=== PATIENT | female | born 1950 | race Caucasian/White ===

== ENCOUNTER → 2021-10-01 12:00 | Outpatient (CLI) | payer MEDICARE, OTHER, SELFPAY ==
--- NOTE | 2021-10-01 12:03 | DI.RAD.S_ITS ---
PROCEDURE: XR LUMBAR SPINE MIN 4V INDICATIONS: BACK PAIN TECHNIQUE: 5 views of the lumbar spine were acquired, including bilateral oblique views. COMPARISON: [facility], RG, MRI L-SPINE W/O CONTRAST, 04/21/2021, 11:32. FINDINGS: Bones: 5 nonrib-bearing vertebrae are present. There is dextroconvex curvature of the lumbar spine centered at L3. Approximately 3 mm grade 1 retrolisthesis of L3 on L4 is noted. There is also approximately 3 mm grade 1 anterolisthesis of L5 on S1. No vertebral body compression fractures. No suspicious bony lesions. Multilevel disc space narrowing degenerative endplate changes. Facet hypertrophy is seen throughout the lumbar spine. Soft tissues: Overlying bowel gas pattern is normal. No suspicious soft tissue calcifications. Oblique images: No pars defects. IMPRESSION: 1. Multilevel moderate to severe spondylosis and mild degenerative spondylolistheses. 2. Moderate dextroconvex curvature. Dictated by: Kenneth Vann M.D. on 10/01/2021 at 14:29 Approved by: Kenneth Vann M.D. on 10/01/2021 at 14:33
== END ==
PROVIDERS: PCP Family Medicine; Referring Provider Physical Medicine & Rehabilitation; Visit Provider Physical Medicine & Rehabilitation
DX: M47.816 Spondylosis without myelopathy or radiculopathy, lumbar region (principal); M47.817 Spondylosis without myelopathy or radiculopathy, lumbosacral region; M43.16 Spondylolisthesis, lumbar region; M43.17 Spondylolisthesis, lumbosacral region; M54.9 Dorsalgia, unspecified
CPT/HCPCS: 72110; 99214

== ENCOUNTER 2021-10-23 14:23 | Outpatient (CLI) | payer MEDICARE, OTHER, SELFPAY ==
[2021-10-23] VITALS (9 sets, daily range): BP systolic 143–178; BP diastolic 71–91; PULSE 72–77; RESP 17–24; TEMP 37; O2SAT 93–100
--- NOTE | 2021-10-23 14:26 | DI.RAD.S_ITS ---
PROCEDURE: PAIN L/SI FACET INJ/BLK 1STL INDICATIONS: SPONDYLOSIS COMPARISON: None. FINDINGS: Fluoroscopic spot filming was performed to verify placement of spinal needles at the L4-5, L5-S1 level(s), as labeled on the films. Appropriate location(s) of the needle tip(s) was confirmed by injection of iodinated contrast. IMPRESSION: Needle placement as above. Dictated by: Rosanna Meneses M.D. on 10/23/2021 at 21:39 Approved by: Rosanna Meneses M.D. on 10/23/2021 at 21:39
[2021-10-23 14:57] LABS: COVID19 -Nasal RAPID Negative (Negative)
[2021-10-23] MEDS: MIDAZOLAM 2 MG/2 ML VIAL IV ×2 (15:48→15:54)
[2021-10-23] MEDS: BUPIVACAINE 0.5% (PF) VIAL 2 ML INJ (15:50)
[2021-10-23] MEDS: BETAMETHASONE 30 MG/5 ML MDV 12 MG INJ (15:50)
[2021-10-23] MEDS: IOPAMIDOL 15 ML VIAL 3 ML INJ (15:50)
--- NOTE | 2021-10-23 16:05 | P.PCN_ITS ---
Date/Time/Diagnoses Date of procedure: 10/23/21 Time of procedure: 16:05 Pre-procedure diagnosis: 1. FACET ARTHROPATHY, 2. AXIAL LBP, 3. MULTILEVEL DDD Post-procedure diagnosis: same Procedure Notes Procedure: 1. FLUOROSCOPICALLY GUIDED CONTRAST CONTROLLED FACET JOINT INJECTIONS LEFT L4/5, L5/S1 Indications: Rayne is referred by Dr. Mederos for treatment of Axial LBP Physician: Reji Roldan Total Fluoroscopy time (seconds): 7 Total sedation minutes: 11 Complications: none Procedure in detail & Post-procedure care: FINDINGS Multilevel Facet Arthropathy with Clinically significant axial LBP DESCRIPTION OF PROCEDURE Fluoroscopically guided, contrast-controlled left L4/5, L5/S1 facet joint injections. Following review of allergy and review of potential side effects and complications, including, but not necessarily limited to, infection, allergic reaction, local tissue breakdown, stroke, temporary or permanent nerve injury, paralysis, and possible , the patient indicated that the patient understood and agreed to proceed. An informed consent document was signed by the patient, witnessed by a nurse, and placed in the patient's chart. Additionally, other treatment options including medications, modalities, and physical therapy were reviewed with the patient. After review of previous anaesthesic history and IV conscious sedation the patient was deemed safe to proceed with today?s procedure with IV conscious sedation as ASA class II designation. Safety time-out was performed to confirm patient ID, procedure to be performed and site of procedure. IV sedation was accomplished with a combination of 4mg of Versed was administered by the RN after DO order, titrated to patient comfort during the course of the procedure while the patient remained responsive to all verbal commands. In the prone position, following sterile prep and drape of the lumbar region, the posterior aspect of the left L4/5, L5/S1 facet joints were identified fluoroscopically. The skin was anesthetized via a 25-gauge 1.5-inch needle with 1% lidocaine solution into the corresponding facet joints. At this point, a 22- gauge 3.5-inch spinal needle was atraumatically introduced and advanced under fluoroscopic guidance into the corresponding facet joints. Following negative aspiration, injections of approximately 0.2-cc of Isovue 200 confirmed interarticular placement without vascular uptake. Radiological data, including multiple fluoroscopic views of the lumbosacral spine, reveal a spinal needle at the left L4/5, L5/S1 facet joints. Subsequent views show flow of contrast material both superiorly and inferiorly within the joint space without vascular or intrathecal uptake. At this point, a total of 0.5 cc including a mixture of 0.25cc Marcaine and 0.25cc betamethasone was injected without complication into each of the corresponding facet joints. The procedure tolerated the procedure well without signs or symptoms of complications prior to transfer to the recovery area continued monitoring without incident. The patient was then transferred to the recovery area where they were observed for an appropriate period of time after the injection. The patient reported a VAS score of 7 prior to the procedure and a post-procedure VAS of 0. POST OP INSTRUCTIONS The patient was provided a Pain Log to continue to record their response to the target-specific procedure prior to follow-up visit with their referring physician. Additionally, specific post-injection care instructions and a contact number to our office were provided if concerns arise regarding possible complications associated with the procedure are suspected.
== END 2021-10-23 16:29 | disposition home or self-care (01) ==
LOC: RAD 14:24
PROVIDERS: PCP Family Medicine; Referring Provider Physical Medicine & Rehabilitation; Visit Provider Physical Medicine & Rehabilitation
DX: M47.816 Spondylosis without myelopathy or radiculopathy, lumbar region (principal); M51.36 Other intervertebral disc degeneration, lumbar region; Z20.822 Contact with and (suspected) exposure to COVID-19
CPT/HCPCS: 64493; 64494; 87635; 99152; J0702; J2250

== ENCOUNTER → 2022-01-21 11:15 | Outpatient (CLI) | payer MEDICARE, OTHER, SELFPAY ==
--- NOTE | 2022-01-21 11:17 | DI.RAD.S_ITS ---
PROCEDURE: XR SHOULDER RT MIN 2V INDICATIONS: RIGHT SHOULDER PAIN TECHNIQUE: 3 views of the shoulder were acquired. COMPARISON: None. FINDINGS: Bones: There is right shoulder arthroplasty. There is lucency along the humeral stem of the shoulder prosthesis. No fractures or dislocations. No suspicious bony lesions. Visualized ribs appear intact. Soft tissues: No suspicious soft tissue calcifications. IMPRESSION: 1. Right shoulder arthroplasty. Lucency along the humeral stent of the shoulder prosthesis is seen, concerning for prosthesis loosening or infection. Recommend triple phase bone scan for further evaluation. Dictated by: Lucy He M.D. on 01/21/2022 at 11:52 Approved by: Lucy He M.D. on 01/21/2022 at 11:54
--- NOTE | 2022-01-21 11:17 | DI.RAD.S_ITS ---
PROCEDURE: XR CERVICAL SPINE 4V OR 5V INDICATIONS: NECK PAIN TECHNIQUE: 5 views of the cervical spine acquired. COMPARISON: None. FINDINGS: Bones: No fractures or dislocations to the C7-T1 level. Oblique images demonstrate no bony foraminal stenoses. There is 4 mm retrolisthesis of C3 on C4, C4 on C5. Severe disc space narrowing is present at C3-4, C4-5, C6-7, moderate throughout the remainder of the cervical spine. Bilateral foraminal narrowing is present most notable from C3-4 through C5-6. Multilevel uncovertebral arthropathy is present. Soft tissues: No prevertebral soft tissue swelling. IMPRESSION: Multilevel degenerative changes most severe from C3-4 through C5-6. Dictated by: Rosanna Meneses M.D. on 01/21/2022 at 12:01 Approved by: Rosanna Meneses M.D. on 01/21/2022 at 12:02
== END ==
PROVIDERS: PCP Family Medicine; Referring Provider Physical Medicine & Rehabilitation; Visit Provider Physical Medicine & Rehabilitation
DX: M47.812 Spondylosis without myelopathy or radiculopathy, cervical region (principal); M47.817 Spondylosis without myelopathy or radiculopathy, lumbosacral region; M54.2 Cervicalgia; M25.511 Pain in right shoulder; Z96.611 Presence of right artificial shoulder joint
CPT/HCPCS: 72050; 73030; 99214

== ENCOUNTER 2022-03-05 09:50 | Outpatient (CLI) | payer MEDICARE, OTHER, SELFPAY ==
[2022-03-05] VITALS (9 sets, daily range): BP systolic 134–169; BP diastolic 72–95; PULSE 63–74; RESP 11–20; TEMP 36.3; O2SAT 95–100
--- NOTE | 2022-03-05 09:53 | DI.RAD.S_ITS ---
PROCEDURE: PAIN L/SI FACET INJ/BLK 1STL INDICATIONS: SPONDYLOSIS COMPARISON: [facility], , PAIN L/SI FACET INJ/BLK 1STL, 10/23/2021, 15:54. FINDINGS: Fluoroscopic spot filming was performed to verify placement of spinal needles on the left at the L4, L5, and S1 levels, as labeled on the films. Appropriate location of the needle tips was confirmed by injection of iodinated contrast. IMPRESSION: Intraprocedural examination demonstrating appropriate positions of the needles. Dictated by: Casper Ramos M.D. on 03/05/2022 at 11:17 Approved by: Casper Ramos M.D. on 03/05/2022 at 11:18
[2022-03-05] MEDS: MIDAZOLAM 2 MG/2 ML VIAL 3 MG IV (10:59)
[2022-03-05] MEDS: IOPAMIDOL 15 ML VIAL 3 ML INJ (10:59)
[2022-03-05] MEDS: BUPIVACAINE 0.5% (PF) 30 ML VIAL 5 ML INJ (11:00)
[2022-03-05] MEDS: LIDOCAINE 1% (PF) 5 ML INJ (11:01)
--- NOTE | 2022-03-05 11:14 | P.PCN_ITS ---
Date/Time/Diagnoses Date of procedure: 03/05/22 Time of procedure: 11:14 Pre-procedure diagnosis: 1. FACET ARTHROPATHY Post-procedure diagnosis: same Procedure Notes Procedure: 1. Left L4, L5 and S1 MB BLOCKS LA Indications: Rayne is referred by Dr. Mederos for treatment of Left Axial LBP. Physician: Reji Roldan Total Fluoroscopy time (seconds): 5 Total sedation minutes: 10 Complications: none Procedure in detail & Post-procedure care: DESCRIPTION OF PROCEDURE Fluoroscopically guided, contrast-controlled left L4, L5 and S1 medial branch blocks with 0.5cc of 0.5% Marcaine. Following review of allergy and review of potential side effects and complications, including, but not necessarily limited to, infection, allergic reaction, local tissue breakdown, nerve injury, paralysis, stroke and possible , the patient indicated that the patient understood and agreed to proceed. An informed consent document was signed by the patient, witnessed by a nurse, and placed in the patient's chart. After review of previous anaesthesic history and IV conscious sedation the patient was deemed safe to proceed with today?s procedure with IV conscious sedation as ASA class II designation. Safety time-out was performed to confirm patient ID, procedure to be performed and site of procedure. IV sedation was accomplished with a combination of 3mg of Versed was administered by the RN after DO order, titrated to patient comfort during the course of the procedure while the patient remained responsive to all verbal commands. In the prone position, following sterile prep and drape of the lumbar region, the left L4, L5 and S1 anatomical location of the medial branch of the dorsal ramus was identified fluoroscopically. Subsequently an anesthetic skin wheal using 1% lidocaine solution was initiated at each of the anatomical spots. Subsequently then a 22-gauge 3.5-inch spinal needle was atraumatically introduced and advanced under fluoroscopic guidance at each of the corresponding sites at the left L4, L5 and S1 MB. After negative aspiration, 0.2cc of Isovue 200 was injected, confirming placement without vascular or intrathecal uptake. Subsequently then 0.5cc of 0.5% Marcaine solution was injected at each of the corresponding sites at the left L4, L5 and S1 medial branch locations. The patient tolerated the procedure well without signs or symptoms of complications. The patient tolerated the procedure well without signs or symptoms of complications prior to transfer to the recovery area continued monitoring without incident. Post-procedure, the patient was monitored initiating provocative activities to measure the amount of relief from block of the facetogenic pain. The patient reported a VAS of 7 prior to the procedure and a post-procedure VAS of 1. It has been a pleasure to assist in the diagnostic and therapeutic care of your patient. POST OP INSTRUCTIONS The patient was provided with a Pain Log to complete over the next several hours and subsequent days prior to the patient's follow up with the ordering physician. If the patient has sales and service agent relief to the solution applied, then they may be a candidate for medial branch rhizotomy. The patient is aware, was provided, once again, with a Pain Log and will follow up with the referring physician for review and clinical correlation.
== END 2022-03-05 11:35 | disposition home or self-care (01) ==
LOC: RAD 09:52
PROVIDERS: PCP Family Medicine; Referring Provider Physical Medicine & Rehabilitation; Visit Provider Physical Medicine & Rehabilitation
DX: M47.816 Spondylosis without myelopathy or radiculopathy, lumbar region (principal); M47.817 Spondylosis without myelopathy or radiculopathy, lumbosacral region
CPT/HCPCS: 64493; 64494; 64495; 99152; J2250

== ENCOUNTER 2022-05-28 10:43 | Outpatient (CLI) | payer MEDICARE, OTHER, SELFPAY ==
[2022-05-28] VITALS (10 sets, daily range): BP systolic 128–171; BP diastolic 66–84; PULSE 67–73; RESP 17–25; TEMP 37.1; O2SAT 95–100
--- NOTE | 2022-05-28 10:44 | DI.RAD.S_ITS ---
PROCEDURE: PAIN L/S MED/LAT N RFA INDICATIONS: SPONDYLOSIS COMPARISON: [facility], , PAIN L/SI FACET INJ/BLK 1STL, 03/05/2022, 11:58. FINDINGS: Fluoroscopic spot filming was performed to verify placement of spinal needles on the left at the L4, L5, and S1 levels, as labeled on the films. IMPRESSION: Images during rhizotomy within normal limits. Dictated by: Casper Ramos M.D. on 05/28/2022 at 12:21 Approved by: Casper Ramos M.D. on 05/28/2022 at 12:21
[2022-05-28] MEDS: MIDAZOLAM 2 MG/2 ML VIAL IV ×2 (12:20→12:27)
[2022-05-28] MEDS: BUPIVACAINE 0.5% (PF) 10 ML VIAL 5 ML SUBCUT (12:25)
[2022-05-28] MEDS: LIDOCAINE 1% 20 ML INJ (12:25)
--- NOTE | 2022-05-28 12:55 | P.PCN_ITS ---
Date/Time/Diagnoses Date of procedure: 05/28/22 Time of procedure: 12:55 Pre-procedure diagnosis: 1. RECALCITRANT FACET ARTHROPATHY Post-procedure diagnosis: same Procedure Notes Procedure: 1. LEFT L4 AND L5 MEDIAL BRANCH RADIOFREQUENCY NEUROTOMY AND LEFT S1 DORSAL RAMUS RADIOFREQUENCY NEUROTOMY, Indications: Rayne is referred by Dr. Mederos for treatment of facet arthropathy. Physician: Reji Roldan Total Fluoroscopy time (seconds): 11 Total sedation minutes: 25 Complications: none Procedure in detail & Post-procedure care: DESCRIPTION OF PROCEDURE Left L4 and L5 medial branch radiofrequency neurotomy and left S1 dorsal ramus branch radiofrequency neurotomy under fluoroscopy with conscious sedation. The patient is well known to this clinic having undergone previous facet injections with good but temporary relief. The patient has experienced appropriate, concordant relief with previous facet and median branch blocks but the patient's pain has been recalcitrant to further conservative measures. Therefore, based upon the patient's relief and persistent symptoms, the patient is considered an appropriate candidate for facet rhizotomy. All of the patient's questions regarding the risks versus benefits of the procedure, including, but not limited to, bleeding, infection, temporary as well as lasting nerve injury, paralysis, stroke, and , as well treatment alternatives were answered to satisfaction. After obtaining informed consent, denial of pertinent drug allergies, as well as being made aware of the potential risks of bleeding, infection, spinal cord trauma, paralysis, temporary and permanent nerve damage, seizure, stroke, and possible , the patient was brought to the fluoroscopy suite and positioned prone on the fluoroscopy table. The lumbar region was prepped with Betadine and covered with a fenestrated drape in the usual sterile fashion. Appropriate monitors applied including pulse oximeter, pulse, and blood pressure for regular monitoring throughout the procedure. IV sedation was accomplished with a combination of 2mg of Versed titrated to patient comfort during the course of the procedure while the patient remained responsive to all verbal commands. After local infiltration using 1% lidocaine, under fluoroscopic guidance, a 10- cm RF insulated needle with a 10-mm active tip was positioned parallel to the junction of the left sacral ala and the superior articulating process where the S1 dorsal ramus resides. Needle placement was confirmed with sensory stimulation at 50 Hz, with motor stimulation of .5v on the left which produced local stimulation without radicular component. The stimulation was then increased to 2v with, once again, only local multifidus stimulation without radicular component. This was then followed by two discreet lesions performed at 80 degrees Celsius for 90 seconds each. The needle was then removed and the identical procedure was performed along the length of the left L5 medial branch with motor stimulation at .7v on the left. The identical procedure was once again performed along the length of the left L4 medial branch with motor stimulation of .5v on the left. The patient tolerated the procedure well without signs or symptoms of complications prior to transfer to the recovery area continued monitoring without incident. The patient was then transferred to the recovery area where they were observed for an appropriate period of time after the injection. The patient was then transferred to the recovery area where they were observed for an appropriate period of time after the injection. The patient reported a VAS score of 9 prior to the procedure and a post- procedure VAS of 0. POST OP INSTRUCTIONS The patient was provided a Pain Log to continue to record the patient's response to the target-specific procedure prior to the patient's follow-up visit with the referring physician. Additionally, specific post-injection care instructions and a contact number to our office were provided if concerns arise regarding possible complications associated with the procedure are suspected.
== END 2022-05-28 13:04 | disposition home or self-care (01) ==
PROVIDERS: PCP Family Medicine; Referring Provider Physical Medicine & Rehabilitation; Visit Provider Physical Medicine & Rehabilitation
DX: M47.816 Spondylosis without myelopathy or radiculopathy, lumbar region (principal); M47.817 Spondylosis without myelopathy or radiculopathy, lumbosacral region
CPT/HCPCS: 64635; 64636; 99152; 99153; J2250

== ENCOUNTER 2022-09-05 09:44 | Outpatient (CLI) | payer MEDICARE, OTHER, SELFPAY ==
[2022-09-05] VITALS (12 sets, daily range): BP systolic 120–182; BP diastolic 58–84; PULSE 68–76; RESP 12–22; TEMP 36.8; O2SAT 96–100
--- NOTE | 2022-09-05 09:45 | DI.RAD.S_ITS ---
PROCEDURE: PAIN C/T INTERLAMINAR INJECT INDICATIONS: SPINAL STENOSIS COMPARISON: None. FINDINGS: Fluoroscopic spot filming was performed to verify placement of spinal needles at the C6-C7 interlaminar space level(s), as labeled on the films. Appropriate location(s) of the needle tip(s) was confirmed by injection of iodinated contrast. IMPRESSION: Access needle tip position in the C6-C7 interlaminar space for translaminar epidural steroid injection. Dictated by: Ramona Coleman MD, PhD on 09/05/2022 at 13:24 Approved by: Ramona Coleman MD, PhD on 09/05/2022 at 13:32
[2022-09-05] MEDS: MIDAZOLAM 2 MG/2 ML VIAL IV ×2 (10:30→10:48)
[2022-09-05] MEDS: BUPIVACAINE 0.25% (PF) VIAL 2 ML INJ (10:35)
[2022-09-05] MEDS: IOPAMIDOL 15 ML VIAL 3 ML INJ (10:36)
[2022-09-05] MEDS: DEXAMETHASONE 10 MG/ML VIAL 30 MG INJ (10:36)
--- NOTE | 2022-09-05 11:01 | P.PCN_ITS ---
Date/Time/Diagnoses Date of procedure: 09/05/22 Time of procedure: 11:01 Pre-procedure diagnosis: 1. CERVICAL STENOSIS, 2. CERVICAL HNP WITH UPPER EXTREMITY RADICULAR FEATURES Post-procedure diagnosis: same Procedure Notes Procedure: 1. FLUORSCOPICALLY GUIDED CONTRAST CONTROLLED INTERLAMINAR EPIDURAL STEROID INJECTION - C6/7 TL LINDA Indications: Rayne is referred by Dr. Mederos for treatment of Cervical HNP with Upper Extremity Paresthesias. Physician: Reji Roldan Total Fluoroscopy time (seconds): 73 Total sedation minutes: 19 Complications: none Procedure in detail & Post-procedure care: FINDINGS Cervical Stenosis due to disc deterioration and nerve root irritation and nerve root irritation DESCRIPTION OF PROCEDURE Fluoroscopically guided, contrast-controlled C6/7 translaminar epidural steroid injection with conscious sedation. Following review of allergy and review of potential side effects and complications, including, but not necessarily limited to, infection, allergic reaction, local tissue breakdown, temporary as well as permanent nerve injury, stroke, paralysis, and possible , the patient indicated that patient understood and agreed to proceed. An informed consent document was signed by the patient, witnessed by a nurse, and placed in the patient's chart. Additionally, other treatment options including modalities, medications, and physical therapy were reviewed with the patient. After review of previous anaesthesic history and IV conscious sedation the patient was deemed safe to proceed with today?s procedure with IV conscious sedation as ASA class II designation. Safety time-out was performed to confirm patient ID, procedure to be performed and site of procedure. IV sedation was accomplished with a combination of 4mg of Versed administered by the RN after DO order, titrated to patient comfort during the course of the procedure while the patient remained responsive to all verbal commands. In the prone position, following sterile prep and drape of the cervical region, the C6/7 translaminar space was identified fluoroscopically. The skin was anesthetized via a 25-gauge 1.5-inch needle with 1% lidocaine solution. At this point, a 25-gauge, 2.5-inch short bevel spinal needle was atraumatically introduced and advanced under fluoroscopic guidance into epidural space at the C6/7 translaminar space. Depth was confirmed on lateral view. Radiological data, including multiple fluoroscopic views of the cervical spine, reveal a spinal needle at the C6/7 translaminar space. Lateral views then show placement of the needle in the epidural space. Subsequent views show contrast material flowing superiorly and inferiorly in the epidural space. DSA fluoroscopy with live contrast injection, once again, confirmed no vascular or intrathecal uptake. At this point, using loss of resistance technique with saline and air, the epidural space was entered. Following negative aspiration, injection of approximately 1.5 cc of Isovue-200 with live fluoroscopy in the AP view confirmed epidural flow in the epidural space without vascular or intrathecal uptake observed. Subsequently, a test dose of 1 cc of 1% lidocaine solution was injected and patient was observed for two minutes without signs or symptoms of complications, including abdominal pain, shortness of breath, bilateral upper or lower extremity weakness, nausea and vomiting, prior to steroid injection. At this point, 3cc or 30mg of dexamethasone was then injected without incident. The patient tolerated the procedure well without signs or symptoms of complicat ions prior to being transferred to the recovery area for further monitoring, The patient was then transferred to the recovery area where they were observed for an appropriate period of time after the injection. The patient reported a VAS score of 7 prior to the procedure and a post-procedure VAS of 1. POST OP INSTRUCTIONS The patient was provided a Pain Log to continue to record their response to the target-specific procedure prior to follow-up visit with the referring provider. Additionally, specific post-injection care instructions and a contact number to our office were provided if concerns arise regarding possible complications associated with the procedure are suspected.
== END 2022-09-05 11:28 | disposition home or self-care (01) ==
PROVIDERS: PCP Family Medicine; Referring Provider Physical Medicine & Rehabilitation; Visit Provider Physical Medicine & Rehabilitation
DX: M48.02 Spinal stenosis, cervical region (principal); M50.123 Cervical disc disorder at C6-C7 level with radiculopathy
CPT/HCPCS: 62321; 99152; J1100; J2250; J3490

== ENCOUNTER 2024-01-22 08:40 | Outpatient (CLI) | payer MEDICARE, OTHER, SELFPAY ==
[2024-01-22] VITALS (12 sets, daily range): BP systolic 123–190; BP diastolic 61–83; PULSE 71–83; RESP 16–20; TEMP 36.8; O2SAT 95–100
--- NOTE | 2024-01-22 08:42 | DI.RAD.S_ITS ---
PROCEDURE: PAIN C/T FACET INJ/BLK 1ST L INDICATIONS: CERVICAL ANTHROPATHY COMPARISON: None. FINDINGS/IMPRESSION: Fluoroscopic spot filming was performed to verify placement of spinal needles at the left C3, C4 and C5 level(s), as labeled on the films. Appropriate location(s) of the needle tip(s) was confirmed by injection of iodinated contrast. Dictated by: Anival Julian M.D. on 01/22/2024 at 13:03 Approved by: Anival Julian M.D. on 01/22/2024 at 13:03
[2024-01-22] MEDS: MIDAZOLAM 2 MG/2 ML VIAL IV ×2 (09:37→09:45)
[2024-01-22] MEDS: BUPIVACAINE 0.5% (PF) 10 ML VIAL 5 ML INJ (09:45)
[2024-01-22] MEDS: iopamidoL 15 ML VIAL 3 ML INJ (09:45)
--- NOTE | 2024-01-22 10:01 | P.PCN_ITS ---
Date/Time/Diagnoses Date of procedure: 01/22/24 Time of procedure: 10:01 Pre-procedure diagnosis: 1. FACET ARTHROPATHY 2. AXIAL NECK PAIN Post-procedure diagnosis: same Procedure Notes Procedure: 1. FLUOROSCOPICALLY GUIDED, CONTRAST-CONTROLLED LEFT C3, C4 and C5 MBB. Indications: Rayne is referred by Dr. Falk for treatment of Axial Neck Pain Physician: Reji Roldan Total Fluoroscopy time (seconds): 9 Total sedation minutes: 19 Complications: none Procedure in detail & Post-procedure care: DESCRIPTION OF PROCEDURE Fluoroscopically guided, contrast-controlled left C3, C4 and C5 medial branch blocks LA. Following review of allergy and review of potential side effects and complications, including, but not necessarily limited to, infection, allergic reaction, local tissue breakdown, stroke, temporary or permanent nerve injury and paralysis, the patient indicated that the patient understood and agreed to proceed. An informed consent document was signed by the patient, witnessed by a nurse, and placed in the patient's chart. Additionally, other treatment options including medications, modalities, and physical therapy were reviewed with the patient. After review of previous anaesthesic history and IV conscious sedation the patient was deemed safe to proceed with today?s procedure with IV conscious sedation as ASA class II designation. Safety time-out was performed to confirm patient ID, procedure to be performed and site of procedure. IV sedation was accomplished with a combination of 4mg of Versed was administered by the RN after DO order, titrated to patient comfort during the course of the procedure while the patient remained responsive to all verbal commands In the prone position, following sterile prep and drape of the cervical spine region, the posterior aspect of the left C3, C4 and C5 medial branches were identified fluoroscopically. The skin was anesthetized via a 25-gauge 1.5-inch needle with 1% lidocaine solution into the corresponding medial branchs. At this point, a 25-gauge 2.5-inch spinal needle was atraumatically introduced and advanced under fluoroscopic guidance into the corresponding locations. Following negative aspiration, injections of approximately 0.1cc of Isovue 200 confirmed placement without vascular uptake. At this point, a total of 0.5cc of 0.25% bupivicaine solution was injected without complication into each of the corresponding medial branches. The procedure tolerated the procedure well without signs or symptoms of complications prior to transfer to the recovery area continued monitoring without incident. The patient was then transferred to the recovery area where they were observed for an appropriate period of time after the injection. The patient reported a VAS score of 9 prior to the procedure and a post- procedure VAS of 2. POST OP INSTRUCTIONS They were provided a Pain Log to continue to record their response to the target-specific procedure prior to their follow-up visit with their referring physician. Additionally, specific post-injection care instructions and a contact number to our office were provided if concerns arise regarding possible complications associated with the procedure are suspected.
== END 2024-01-22 10:35 | disposition home or self-care (01) ==
PROVIDERS: PCP Student in an Organized Health Care Education/Training Program; Referring Provider Physical Medicine & Rehabilitation; Visit Provider Physical Medicine & Rehabilitation
DX: M47.812 Spondylosis without myelopathy or radiculopathy, cervical region (principal)
CPT/HCPCS: 64490; 64491; 99152; J2250

== ENCOUNTER 2024-04-01 10:16 | Outpatient (CLI) | payer MEDICARE, OTHER, SELFPAY ==
[2024-04-01] VITALS (9 sets, daily range): BP systolic 138–187; BP diastolic 72–86; PULSE 68–72; RESP 14–19; TEMP 36.7; O2SAT 97–100
--- NOTE | 2024-04-01 10:19 | DI.RAD.S_ITS ---
PROCEDURE: PAIN L/S TRANSFORAM INJECT FRANCA COMPARISON: None. INDICATIONS: Bilateral L4-5 transforaminal LINDA FINDINGS: Intra procedural examination demonstrating appropriate positions of the needles. Bilateral L4-5 transforaminal injection. IMPRESSION: Intra procedural examination demonstrating appropriate positions of the needles. Dictated by: Michele Shay M.D. on 04/01/2024 at 13:14 Approved by: Michele Shay M.D. on 04/01/2024 at 13:15
[2024-04-01] MEDS: MIDAZOLAM 2 MG/2 ML VIAL 1 MG IV (10:55)
[2024-04-01] MEDS: BUPIVACAINE 0.25% (PF) VIAL 2 ML INJ (10:55)
[2024-04-01] MEDS: DEXAMETHASONE 10 MG/ML VIAL 20 MG INJ (10:55)
[2024-04-01] MEDS: iopamidoL 15 ML VIAL 3 ML INJ (10:56)
[2024-04-01] MEDS: BETAMETHASONE 30 MG/5 ML MDV 12 MG INJ (10:56)
--- NOTE | 2024-04-01 11:10 | PM.PROC.IR.1 ---
Date/Time/Diagnoses Date of procedure: 04/01/24 Time of procedure: 11:10 Pre-procedure diagnosis: 1. FORAMINAL STENOSIS WITH LE SYMPTOMS Procedure Notes Procedure: 1. FLUOROSCOPICALLY GUIDED CONTRAST CONTROLLED TRANSFORAMINAL EPIDURAL STEROID INJECTION - BILATERAL L4/5 TFESI Indications: Rayne is referred by Dr. Falk for treatment of Foraminal Stenosis with bilateral LE Symptoms Physician: Reji Roldan Total Fluoroscopy time (seconds): 19 Total sedation minutes: 21 Complications: none Procedure in detail & Post-procedure care: FINDINGS Foraminal Nerve Root Compression secondary to disc disease and facet hypertrophy DESCRIPTION OF PROCEDURE Following review of allergy and review of potential side effects and complications, including, but not necessarily limited to, infection, allergic reaction, local tissue breakdown, stroke, temporary or permanent nerve injury, paralysis, and possible , the patient indicated that the patient understood and agreed to proceed. An informed consent document was signed by the patient, witnessed by a nurse, and placed in the patient's chart. Additionally, other treatment options including medications, modalities, and physical therapy were reviewed with the patient. After review of previous anaesthesic history and IV conscious sedation the patient was deemed safe to proceed with today?s procedure with IV conscious sedation as ASA class II designation. Safety time-out was performed to confirm patient ID, procedure to be performed and site of procedure. IV sedation was accomplished with a combination of 1mg of Versed was administered by the RN after DO order, titrated to patient comfort during the course of the procedure while the patient remained responsive to all verbal commands In the prone position following sterile prep and drape of the lumbar region, the right L4/5 posterior neuroforamen was identified fluoroscopically. The skin was anesthetized via a 25-gauge 1.5-inch needle with 1% lidocaine solution. At this point, a 25-gauge 3.5-inch spinal needle was atraumatically introduced and advanced under fluoroscopic guidance through the posterior right L4/5 neuroforamen to approximately the anterior aspect of the canal. Depth was confirmed on lateral view. Following negative aspiration, injection of approximately 1.5cc of Isovue 200 under live fluoroscopy in the AP view confirmed excellent flow along the nerve root, into the epidural space without vascular or intrathecal uptake observed Radiological data, including multiple fluoroscopic views of the lumbosacral spine, reveal a spinal needle at the right L4/5 posterior neuroforamen. Subsequent views show flow of contrast material flowing superiorly and inferiorly along the nerve root confirming epidural flow. Subsequently, a test dose of 1.5cc of 1% lidocaine solution was administered and patient was observed for two minutes for signs or symptoms of complications, including abdominal pain, shortness of breath, bilateral upper or lower extremity weakness, nausea and vomiting, prior to steroid injection. At this point, a total of 2cc or 10mg of dexamethasone and 6mg betamethasone was injected without incident. Attention was then refocused to the left L4/5 level where the identical procedure was replicated. The procedure tolerated the procedure well without signs or symptoms of complications prior to transfer to the recovery area continued monitoring without incident. The patient was then transferred to the recovery area where they were observed for an appropriate time after the injection. The patient reported a VAS score of 7 prior to the procedure and a post-procedure VAS of 1. POST OP INSTRUCTIONS The patient was provided a Pain Log to continue to record their response to the target-specific procedure prior to follow-up visit with their referring physician. Additionally, specific post-injection care instructions and a contact number to our office were provided if concerns arise regarding possible complications associated with the procedure are suspected.
== END 2024-04-01 11:27 | disposition home or self-care (01) ==
LOC: RAD 10:17
PROVIDERS: PCP Student in an Organized Health Care Education/Training Program; Referring Provider Physical Medicine & Rehabilitation; Visit Provider Physical Medicine & Rehabilitation
DX: M48.061 Spinal stenosis, lumbar region without neurogenic claudication (principal); M47.26 Other spondylosis with radiculopathy, lumbar region; M51.16 Intervertebral disc disorders with radiculopathy, lumbar region
CPT/HCPCS: 64483; 99152; J0702; J1100; J2250; J3490

== ENCOUNTER → 2024-06-02 10:50 | Outpatient (CLI) | payer MEDICARE, OTHER, SELFPAY ==
--- NOTE | 2024-06-02 10:53 | DI.RAD.S_ITS ---
PROCEDURE: XR LUMBAR SPINE MIN 4V INDICATIONS: BACK PAIN TECHNIQUE: 5 views of the lumbar spine were acquired, including bilateral oblique views. COMPARISON: , , XR LUMBAR SPINE MIN 4V, 10/01/2021, 12:19. FINDINGS: Bones: 5 nonrib-bearing vertebrae are present. There is dextroconvex curvature lumbar spine centered at L3. Grade 1 anterolisthesis of L5 on S1. Multilevel disc space narrowing and degenerative endplate changes. Multilevel facet arthropathy, worse in the inferior lumbar spine. No vertebral body compression fractures. No suspicious bony lesions. Soft tissues: Overlying bowel gas pattern is normal. No suspicious soft tissue calcifications. Oblique images: No pars defects. IMPRESSION: No acute fracture or traumatic subluxation. Dextroconvex curvature. Multilevel moderate to severe degenerative changes, mildly progressed since prior radiograph 10/01/2021. Approved by: Zhanna Merino M.D.,Ph.D. on 06/02/2024 at 11:29
--- NOTE | 2024-06-02 10:53 | DI.RAD.S_ITS ---
PROCEDURE: XR HIP W PEL IF DONE FRANCA MIN 4V INDICATIONS: LEFT HIP PAIN TECHNIQUE: AP pelvis with lateral view(s) of the bilateral hip(s). COMPARISON: None. FINDINGS: Bones: No fractures or dislocations. Pelvic ring appears intact. No suspicious bony lesions. Soft tissues: The visualized bowel gas pattern is normal. No suspicious soft tissue calcifications. IMPRESSION: No acute bony abnormality. If symptoms persist with conservative management, consider cross-sectional imaging such as CT or MRI. Approved by: Zhanna Merino M.D.,Ph.D. on 06/02/2024 at 11:30
== END ==
PROVIDERS: PCP Student in an Organized Health Care Education/Training Program; Referring Provider Physical Medicine & Rehabilitation; Visit Provider Physical Medicine & Rehabilitation
DX: M47.816 Spondylosis without myelopathy or radiculopathy, lumbar region (principal); M47.817 Spondylosis without myelopathy or radiculopathy, lumbosacral region; M25.552 Pain in left hip; M70.62 Trochanteric bursitis, left hip; M47.22 Other spondylosis with radiculopathy, cervical region; Z96.611 Presence of right artificial shoulder joint
CPT/HCPCS: 20611; 72110; 73522; 99214; J0702